=== PATIENT | male | born 1975 | race Caucasian/White ===

== ENCOUNTER 2020-11-16 15:52 | Inpatient (IN) | payer BC ==
[~2020-11-16] VITALS: Ht 177.8 cm; Wt 71.2 kg
[~2020-11-16 15:52] MED LIST: ALBU8.5H8 INH; AMLO-150 PO; ASPI-496 PO; ATOR20TA37 PO; BECL8.7A7 INH; LISI-167 PO; NITR0.4T28 SL
--- NOTE | 2020-11-16 16:14 | NUR ---
PT HERE W/ BURNING CP STARTED 1130 THIS AM DID NOT TAKE HIS NITRO BC BUT TOOK 2 10 MG LISINOPRIL. WENT ON 12 MILE RUN THIS AM. CP WORSE ON DEEP INSP. SOME ST ELEV LEAD II AND ELEV TROP PER [facility]. 325 ASA AND LOVENOX AT [facility]. 2O R AC. A&OX4 GCS 15. NAD. GIVEN URINAL. CALL MAIN.
[2020-11-16 16:23] LABS: BASOPHILS % (AUTO) 1 % (0-1); EOSINOPHILS % (AUTO) 0 % (1-7); LYMPHOCYTES % (AUTO) 18 % (22-44); MEAN CORPUSCULAR HEMOGLOBIN 30.1 pg (27.5-34.5); MEAN CORPUSCULAR HGB CONC 34.3 g/dL (33.2-36.2); MEAN PLATELET VOLUME 7.9 fL (7.4-10.4); MONOCYTES % (AUTO) 4 % (2-9); NEUTROPHILS % (AUTO) 78 % (42-75); PLATELET COUNT 292 x10^3/uL (130-400); RED CELL DISTRIBUTION WIDTH 13.4 % (9.4-14.8)
[2020-11-16 16:34] LABS: ANION GAP 6 mmol/L (5-15); CALCIUM 9.2 mg/dL (8.5-10.1); CHLORIDE 108 mmol/L (98-107); CREATININE 0.98 mg/dL (0.7-1.3)
--- NOTE | 2020-11-16 16:47 | NUR ---
critical trop 2.700 (up from .019 at [facility]) corona at bedside, notified. ekg in prog. as
[2020-11-16] MEDS ORDERED: HEPARIN 25,000 UNITS/250ML PMX 0 ML ONE (16:50)
[2020-11-16] MEDS ORDERED: HEPARIN 5,000 UNITS/ML, 1ML ONE (16:50)
[2020-11-16] MEDS ORDERED: LORazepam 2 MG/ML, 1ML IVPush PRN (17:00)
[2020-11-16] MEDS ORDERED: ONDANSETRON 2MG/ML, 2ML IVPush PRN (17:00)
[2020-11-16] MEDS ORDERED: POLYETHYLENE GLYCOL 17 GM PACKET PO PRN (17:00)
[2020-11-16] MEDS ORDERED: MORPHINE SULFATE 4 MG/ML, 1ML IVPush PRN (17:00)
[2020-11-16] MEDS ORDERED: MELATONIN 5 MG TABLET PO PRN (17:00)
[2020-11-16] MEDS ORDERED: NITROGLYCERIN SINGLE TAB 0.4 MG SL PRN (17:00)
[2020-11-16] MEDS ORDERED: BISACODYL 10 MG SUPP PR PRN (17:00)
[2020-11-16] MEDS ORDERED: DOCUSATE 100 MG CAPSULE PO PRN (17:00)
[2020-11-16] MEDS ORDERED: TEMAZEPAM 15 MG CAPSULE PO PRN (17:00)
[2020-11-16] MEDS ORDERED: hydrALAzine 20 MG/ML, 1ML IVPush PRN (17:00)
[2020-11-16] MEDS ORDERED: OXYcodone IR 5MG TABLET PO PRN (17:00)
--- NOTE | 2020-11-16 17:04 | NUR ---
pt got lovenox at [facility] at 1436, corona to tell patient case coordinator about trop. pt calm, 1/ cp, no needs at this time. as
[2020-11-16 18:14] VITALS: BP 142/82
[2020-11-16] MEDS ORDERED: METOPROLOL TARTRATE 25 MG TAB PO ONE (21:00)
[2020-11-16] MEDS: FAMOTIDINE 20 MG TABLET PO SCH (21:01)
[2020-11-16] MEDS ORDERED: ATORVASTATIN 40 MG TABLET PO SCH (21:30)
[2020-11-16] MEDS: NITROGLYCERIN OINT 2%, 1GM TP SCH (22:14)
[2020-11-17] MEDS ORDERED: ENOXAPARIN 80 MG/0.8 ML SQ SCH (02:00)
[2020-11-17 02:31] VITALS: BP 121/72
[2020-11-17] MEDS: ACETAMINOPHEN 325 MG TABLET PO PRN ×2 (02:35→12:09)
[2020-11-17] MEDS: NITROGLYCERIN OINT 2%, 1GM TP SCH (05:14)
[2020-11-17 05:20] LABS: BASOPHILS % (AUTO) 1 % (0-1); EOSINOPHILS % (AUTO) 1 % (1-7); LYMPHOCYTES % (AUTO) 29 % (22-44); MEAN CORPUSCULAR HEMOGLOBIN 30.1 pg (27.5-34.5); MEAN CORPUSCULAR HGB CONC 33.8 g/dL (33.2-36.2); MEAN PLATELET VOLUME 8.5 fL (7.4-10.4); MONOCYTES % (AUTO) 9 % (2-9); NEUTROPHILS % (AUTO) 61 % (42-75); PLATELET COUNT 272 x10^3/uL (130-400); RED BLOOD COUNT 4.96 x10^6/uL (4.38-5.82); RED CELL DISTRIBUTION WIDTH 13.7 % (9.4-14.8)
[2020-11-17 05:27] LABS: ALBUMIN 3.7 g/dL (3.4-5.0); ANION GAP 5 mmol/L (5-15); CHLORIDE 110 mmol/L (98-107)
[2020-11-17 05:35] LABS: ALANINE AMINOTRANSFERASE 40 U/L (12-78); ALKALINE PHOSPHATASE 75 U/L (45-117); BILIRUBIN,TOTAL 0.6 mg/dL (0.2-1.0); CALCIUM 9.1 mg/dL (8.5-10.1); CHOL/HDL RATIO 4.2; CHOLESTEROL, TOTAL 213 mg/dL (140-239); CREATININE 1.01 mg/dL (0.7-1.3); HDL CHOL % 24 % (26-37); HDL CHOLESTEROL (DIRECT) 51 mg/dL (40-60); LDL CHOLESTEROL,CALCULATED 144 mg/dL (54-169); LDL/HDL RATIO 2.8 (0.5-3.0); TOTAL PROTEIN 6.7 g/dL (6.4-8.2); TRIGLYCERIDES 91 mg/dL (50-200); VLDL CHOLESTEROL 18 mg/dL (0-25)
[2020-11-17] MEDS ORDERED: ASPIRIN 325 MG TABLET PO SCH (06:00)
[2020-11-17 07:15] VITALS: BP 124/80
[2020-11-17] MEDS: FAMOTIDINE 20 MG TABLET PO SCH ×2 (08:51→19:43)
[2020-11-17] MEDS: LISINOPRIL 10 MG TABLET PO SCH (08:52)
[2020-11-17] MEDS ORDERED: SODIUM CHLORIDE 0.9% 1,000 ML IV SCH ×2 (09:00→11:30)
[2020-11-17] MEDS ORDERED: FENTANYL PF 100 MCG/2ML ONE (09:35)
[2020-11-17] MEDS ORDERED: TICAGRELOR 90 MG TABLET ONE (09:35)
[2020-11-17] MEDS ORDERED: VERAPAMIL 2.5 MG/ML, 2ML ONE (09:35)
[2020-11-17] MEDS ORDERED: MIDAZOLAM 1 MG/ML, 5ML ONE (09:35)
[2020-11-17] MEDS ORDERED: BIVALIRUDIN 250 MG ONE (09:36)
[2020-11-17] MEDS ORDERED: LIDOCAINE-MPF 1%, 5ML ONE (09:36)
[2020-11-17] MEDS ORDERED: HEPARIN 1,000 UNITS/ML, 10ML ONE (09:36)
[2020-11-17] MEDS ORDERED: BIVALIRUDIN 250 MG in SODIUM CHLORIDE 0.9% 50 ML IV SCH (11:30)
[2020-11-17] MEDS ORDERED: ACETAMINOPHEN 325 MG TABLET PO PRN (11:30)
[2020-11-17 12:40] VITALS: BP 118/73
[2020-11-17 19:20] VITALS: BP 146/83
[2020-11-17] MEDS: ATORVASTATIN 80 MG TABLET PO SCH (19:43)
[2020-11-17] MEDS: TICAGRELOR 90 MG TABLET PO SCH (19:44)
[2020-11-18 00:28] VITALS: BP 137/79
[2020-11-18 05:29] LABS: BASOPHILS % (AUTO) 1 % (0-1); EOSINOPHILS % (AUTO) 1 % (1-7); LYMPHOCYTES % (AUTO) 26 % (22-44); MEAN CORPUSCULAR HEMOGLOBIN 30.4 pg (27.5-34.5); MEAN CORPUSCULAR HGB CONC 34.4 g/dL (33.2-36.2); MEAN PLATELET VOLUME 8.3 fL (7.4-10.4); MONOCYTES % (AUTO) 7 % (2-9); NEUTROPHILS % (AUTO) 66 % (42-75); PLATELET COUNT 235 x10^3/uL (130-400); RED BLOOD COUNT 4.77 x10^6/uL (4.38-5.82); RED CELL DISTRIBUTION WIDTH 13.5 % (9.4-14.8)
[2020-11-18 05:37] LABS: ANION GAP 4 mmol/L (5-15); CALCIUM 8.5 mg/dL (8.5-10.1); CHLORIDE 111 mmol/L (98-107); CREATININE 0.84 mg/dL (0.7-1.3)
[2020-11-18] MEDS: ASPIRIN 81 MG TABLET EC PO SCH (05:52)
[2020-11-18 08:53] VITALS: BP 183/94
[2020-11-18] MEDS: LISINOPRIL 10 MG TABLET PO SCH (08:58)
[2020-11-18] MEDS: TICAGRELOR 90 MG TABLET PO SCH ×2 (08:58→20:10)
[2020-11-18] MEDS: FAMOTIDINE 20 MG TABLET PO SCH ×2 (08:59→20:10)
[2020-11-18 14:00] VITALS: BP 135/89
[2020-11-18] MEDS: ACETAMINOPHEN 325 MG TABLET PO PRN (16:01)
[2020-11-18 18:38] VITALS: BP 131/81
[2020-11-18] MEDS: ATORVASTATIN 80 MG TABLET PO SCH (20:09)
[2020-11-19 01:19] VITALS: BP 149/91
[2020-11-19] MEDS: ASPIRIN 81 MG TABLET EC PO SCH (05:52)
[2020-11-19 06:45] VITALS: BP 138/88
[2020-11-19] MEDS ORDERED: LOSARTAN 50MG TABLET PO SCH (09:00)
[2020-11-19] MEDS ORDERED: LISINOPRIL 40 MG TABLET PO SCH (09:00)
[2020-11-19] MEDS: FAMOTIDINE 20 MG TABLET PO SCH (09:08)
[2020-11-19] MEDS: TICAGRELOR 90 MG TABLET PO SCH (09:08)
[2020-11-19] MEDS ORDERED: ASPI81TA45 PO (10:56)
[2020-11-19] MEDS ORDERED: ATOR-2 PO (10:56)
[2020-11-19] MEDS ORDERED: TICA90TA PO (10:56)
[2020-11-19] MEDS ORDERED: LOSA50TA2 PO (10:56)
== END 2020-11-19 12:05 | disposition home or self-care (01) | DRG 246 ==
LOC: ED 17:47 → 5SO 18:40 → DCLOUNGE 11-19 11:52 → 5SO 11-19 11:52 → 4WST 11-19 12:35 → DCLOUNGE 11-19 12:35
PROVIDERS: ADMIT Internal Medicine Infectious Disease; ATTEND Internal Medicine
PROC: 027135Z Dilation of Coronary Artery, Two Arteries with Two Drug-eluting Intraluminal Devices, Percutaneous Approach (ICD-10-PCS; principal; 2020-11-17)
PROC: B2111ZZ Fluoroscopy of Multiple Coronary Arteries using Low Osmolar Contrast (ICD-10-PCS; 2020-11-17)
PROC: 4A023N7 Measurement of Cardiac Sampling and Pressure, Left Heart, Percutaneous Approach (ICD-10-PCS; 2020-11-17)
DX: I25.10 Atherosclerotic heart disease of native coronary artery without angina pectoris (principal); I21.4 Non-ST elevation (NSTEMI) myocardial infarction; I47.2 Ventricular tachycardia; E78.5 Hyperlipidemia, unspecified; I11.9 Hypertensive heart disease without heart failure; Z82.49 Family history of ischemic heart disease and other diseases of the circulatory system; Z95.5 Presence of coronary angioplasty implant and graft; Z79.899 Other long term (current) drug therapy; Z79.82 Long term (current) use of aspirin; Z79.01 Long term (current) use of anticoagulants
CPT/HCPCS: 36415; 93458; 99285; C9600; C9601; 80048; 80053; 80061; 83036; 83735; 84100; 84484; 85025; 93005; 93306; 99156; 99157; C1769; C1894; G0378; J0583; J1644; J1650; J2250; J3010; C1725; C1874; C1887; Q9967